=== PATIENT | female | born 1975 | race Caucasian/White ===

== ENCOUNTER 2017-11-06 15:40 | Inpatient (IN) | payer OTHER ==
[~2017-11-06 15:40] MED LIST: OXYTOCIN 30 UNITS/LR 500 ML BAG IV
[2017-11-06] MEDS ORDERED: CARBOPROST 250 MCG INJ IM (16:00)
[2017-11-06] MEDS ORDERED: METHYLERGONOVINE 0.2 MG INJ IM (16:00)
[2017-11-06] MEDS ORDERED: MISOPROSTOL 200 MCG TAB PR (16:00)
[2017-11-06] MEDS: AMPICILLIN 2 GM/NS (PMX) 100 ML IV (16:37)
[2017-11-06 16:46] LABS: ADD MAN DIFF? NO
[2017-11-06 16:48] LABS: BASOPHIL # 0.1 10^3/ul (0.0-0.1); BASOPHILS % 0.7 % (0.0-2.0); EOSINOPHILS # 0.1 10^3/ul (0.0-0.5); EOSINOPHILS % 0.5 % (0.0-7.0); HEMATOCRIT 36.3 % (37.0-47.0); HEMOGLOBIN 11.8 g/dl (12.0-16.0); LYMPHOCYTES # 2.8 10^3/ul (0.8-2.9); LYMPHOCYTES % 16.7 % (15.0-51.0); MEAN CORPUSCULAR HEMOGLOBIN 26.5 pg (29.0-33.0); MEAN CORPUSCULAR HGB CONC 32.5 g/dl (32.0-37.0); MEAN CORPUSCULAR VOLUME 81.4 fl (82.0-101.0); MEAN PLATELET VOLUME 12.6 fl (7.4-10.4); MONOCYTE # 0.9 10^3/ul (0.3-0.9); MONOCYTES % 5.3 % (0.0-11.0); PLATELET COUNT 186 10^3/UL (140-415); RED BLOOD COUNT 4.46 10^6/ul (4.20-5.40); RED CELL DISTRIBUTION WIDTH 15.9 % (11.5-14.5)
[2017-11-06 16:48] LABS: WHITE BLOOD COUNT 16.7 10^3/ul (4.8-10.8)
[2017-11-06] MEDS: LACTATED RINGER'S 1,000 ML IV ×2 (16:54→19:14)
[2017-11-06 17:13] LABS: INR 1.13; PROTIME 14.7 Sec (11.9-14.9); PT RATIO 1.1
[2017-11-06 18:07] LABS: HEPATITIS B SURFACE ANTIGEN NEGATIVE (NEGATIVE)
[2017-11-06] MEDS ORDERED: morphine SULFATE/PF (10 MG/10 ML) INJ (20:21)
[2017-11-06] MEDS ORDERED: ONDANSETRON 4 MG INJ (20:21)
[2017-11-06] MEDS ORDERED: PHENYLephrine (100 MCG/ML) 5ML SYG ×3 (20:22→21:36)
[2017-11-06] MEDS ORDERED: OXYTOCIN 10 UNIT INJ (20:22)
[2017-11-06] MEDS ORDERED: FENTAnyl 50 MCG/ML VIAL (21:35)
[2017-11-06] MEDS ORDERED: MIDAZOLAM 1 MG/ML 2 ML INJ (21:56)
[2017-11-06] MEDS ORDERED: KETOROLAC 30 MG INJ (22:26)
[2017-11-06] MEDS ORDERED: NALOXONE (0.4 MG/ML) INJ IV (22:30)
[2017-11-06] MEDS ORDERED: DIPHENHYDRAMINE 50 MG INJ IV (22:30)
[2017-11-06] MEDS: morphine 2 MG INJ IV (23:19)
[2017-11-06] MEDS: KETOROLAC 30 MG INJ IV (23:20)
[2017-11-07] MEDS: OXYTOCIN 30 UNITS/LR 500 ML IV ×2 (00:08→01:46)
[2017-11-07] MEDS: CEFAZOLIN 2 GM/50 ML (PMX) 50 ML IV (00:09)
[2017-11-07] MEDS: ONDANSETRON 4 MG INJ IV (00:56)
[2017-11-07] MEDS: LACTATED RINGER'S 1,000 ML IV ×3 (01:46→13:02)
[2017-11-07] MEDS ORDERED: LANOLIN 7 GM TUBE TOP (02:00)
[2017-11-07] MEDS ORDERED: METHYLERGONOVINE 0.2 MG INJ IM (02:00)
[2017-11-07] MEDS ORDERED: OXYCODONE/ACETAMINOPHEN (5/325) TAB PO ×4 (02:00→22:30)
[2017-11-07] MEDS ORDERED: MISOPROSTOL 200 MCG TAB PR (02:00)
[2017-11-07] MEDS ORDERED: OXYTOCIN 30 UNITS/LR 500 ML IV (02:00)
[2017-11-07] MEDS ORDERED: CARBOPROST 250 MCG INJ IM (02:00)
[2017-11-07 08:37] LABS: ADD MAN DIFF? NO
[2017-11-07] MEDS: SENNA/DOCUSATE NA (8.6MG/50MG) TAB PO ×2 (08:39→20:44)
[2017-11-07 08:40] LABS: BASOPHILS % 0.2 % (0.0-2.0); HEMATOCRIT 29.4 % (37.0-47.0); HEMOGLOBIN 9.7 g/dl (12.0-16.0); LYMPHOCYTES # 1.5 10^3/ul (0.8-2.9); LYMPHOCYTES % 7.9 % (15.0-51.0); MEAN CORPUSCULAR HEMOGLOBIN 26.8 pg (29.0-33.0); MEAN CORPUSCULAR VOLUME 81.2 fl (82.0-101.0); MEAN PLATELET VOLUME 12.8 fl (7.4-10.4); MONOCYTE # 0.9 10^3/ul (0.3-0.9); MONOCYTES % 4.9 % (0.0-11.0); NEUTROPHIL # 16.1 10^3/ul (1.6-7.5); NEUTROPHILS % 85.1 % (39.0-77.0); PLATELET COUNT 173 10^3/UL (140-415); RED BLOOD COUNT 3.62 10^6/ul (4.20-5.40); RED CELL DISTRIBUTION WIDTH 15.8 % (11.5-14.5)
[2017-11-07 08:40] LABS: WHITE BLOOD COUNT 18.9 10^3/ul (4.8-10.8)
[2017-11-07] MEDS: FERROUS SULFATE (EC) 325 MG TAB PO ×2 (12:04→20:44)
[2017-11-07 15:07] LABS: RAPID PLASMA REAGIN NONREACTIVE (NR)
[2017-11-07] MEDS: KETOROLAC 30 MG INJ IV (19:42)
[2017-11-07] MEDS: IBUPROFEN 800 MG TAB PO (22:11)
[2017-11-08] MEDS: LACTATED RINGER'S 1,000 ML IV ×2 (01:46→09:46)
[2017-11-08] MEDS: IBUPROFEN 800 MG TAB PO ×3 (05:55→21:45)
[2017-11-08] MEDS ORDERED: IBUPROFEN 800 MG TAB PO (06:00)
[2017-11-08 09:47] LABS: ADD MAN DIFF? NO
[2017-11-08 10:01] LABS: WHITE BLOOD COUNT 13.7 10^3/ul (4.8-10.8)
[2017-11-08 10:01] LABS: BASOPHIL # 0.1 10^3/ul (0.0-0.1); BASOPHILS % 0.5 % (0.0-2.0); EOSINOPHILS # 0.1 10^3/ul (0.0-0.5); EOSINOPHILS % 0.4 % (0.0-7.0); HEMATOCRIT 32.2 % (37.0-47.0); HEMOGLOBIN 10.1 g/dl (12.0-16.0); LYMPHOCYTES # 1.7 10^3/ul (0.8-2.9); LYMPHOCYTES % 12.4 % (15.0-51.0); MEAN CORPUSCULAR HEMOGLOBIN 25.9 pg (29.0-33.0); MEAN CORPUSCULAR HGB CONC 31.4 g/dl (32.0-37.0); MEAN CORPUSCULAR VOLUME 82.6 fl (82.0-101.0); MONOCYTE # 0.8 10^3/ul (0.3-0.9); MONOCYTES % 6.1 % (0.0-11.0); NEUTROPHIL # 10.5 10^3/ul (1.6-7.5); NEUTROPHILS % 76.7 % (39.0-77.0); PLATELET COUNT 215 10^3/UL (140-415); RED CELL DISTRIBUTION WIDTH 16.3 % (11.5-14.5)
[2017-11-08] MEDS: FERROUS SULFATE (EC) 325 MG TAB PO ×3 (10:02→21:45)
[2017-11-08] MEDS: SENNA/DOCUSATE NA (8.6MG/50MG) TAB PO ×2 (10:02→21:45)
[2017-11-08] MEDS: OXYCODONE/ACETAMINOPHEN (5/325) TAB PO ×2 (12:05→23:04)
[2017-11-09] MEDS: IBUPROFEN 800 MG TAB PO ×2 (05:33→14:00)
[2017-11-09] MEDS: FERROUS SULFATE (EC) 325 MG TAB PO ×2 (09:03→12:30)
[2017-11-09] MEDS: SENNA/DOCUSATE NA (8.6MG/50MG) TAB PO (09:04)
[2017-11-09] MEDS: DIPHTH/TET/ACEL PERTUSS (ADULT) 0.5 ML VIAL IM* (09:04)
[2017-11-09] MEDS: OXYCODONE/ACETAMINOPHEN (5/325) TAB PO (12:29)
== END 2017-11-09 14:05 | disposition home or self-care (01) | DRG 766 ==
LOC: L-D 15:40 → PP1 11-07 02:33 → L-D 20:19
PROVIDERS: Obstetrics & Gynecology
PROC: 10D00Z1 Extraction of Products of Conception, Low, Open Approach (ICD-10-PCS; principal; 2017-11-06 17:00)
PROC: 0UL70ZZ Occlusion of Bilateral Fallopian Tubes, Open Approach (ICD-10-PCS; 2017-11-06 17:00)
PROC: 3E033VJ Introduction of Other Hormone into Peripheral Vein, Percutaneous Approach (ICD-10-PCS; 2017-11-06 17:00)
DX: O34.211 Maternal care for low transverse scar from previous cesarean delivery (principal); E66.01 Morbid (severe) obesity due to excess calories; Z30.2 Encounter for sterilization; O99.214 Obesity complicating childbirth; Z68.32 Body mass index [BMI] 32.0-32.9, adult; Z37.0 Single live birth; Z3A.39 39 weeks gestation of pregnancy
CPT/HCPCS: 85025; 85610; 85730; 86592; 86850; 86900; 86901; 87340; 88302; 90715; 94760; 99464